=== PATIENT | male | born 1960 | race Caucasian/White ===

== ENCOUNTER 2022-05-27 11:04 | Emergency (ER) | payer BC ==
[~2022-05-27] VITALS: Ht 160 cm; Wt 70.3 kg
[2022-05-27 11:16] VITALS: BP 145/66
[2022-05-27] MEDS ORDERED: HYDROcodone/APAP 7.5/325 MG 1 TAB PO ONE (12:25)
--- NOTE | 2022-05-27 12:38 | NUR ---
sugar tong to r lower arm. x 2 amy bandage. + cms after application. sling also applied. pt tolerated both sling and splint.
[2022-05-27] MEDS ORDERED: IBUP-2213 PO (12:55)
[2022-05-27] MEDS ORDERED: ACET-8386 PO (12:55)
--- NOTE | 2022-05-27 13:10 | NUR ---
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
[2022-05-27 13:19] VITALS: BP 145/66
--- NOTE | 2022-05-27 13:20 | NUR ---
Patient discharged with v/s stable. Written and verbal after care instructions given and explained. Patient alert, oriented and verbalized understanding of instructions. Ambulatory with family to car. All questions addressed prior to discharge. ID band removed. Patient advised to follow up with PMD. Rx of given. Patient educated on indication of medication including possible reaction and side effects. Opportunity to ask questions provided and answered. rx: hydrocodone, ibuprofen (sent) cd and copy of xray given
== END 2022-05-27 13:20 | disposition home or self-care (01) ==
LOC: MED 11:04
DX: S52.611A Displaced fracture of right ulna styloid process, initial encounter for closed fracture (principal); S52.511A Displaced fracture of right radial styloid process, initial encounter for closed fracture; I10 Essential (primary) hypertension; Z95.1 Presence of aortocoronary bypass graft; Z79.899 Other long term (current) drug therapy; Z79.4 Long term (current) use of insulin; E11.9 Type 2 diabetes mellitus without complications; W18.30XA Fall on same level, unspecified, initial encounter; Y93.89 Activity, other specified; Y92.89 Other specified places as the place of occurrence of the external cause; Y99.8 Other external cause status
CPT/HCPCS: 73110; 99283